=== PATIENT | male | born 1975 | race Caucasian/White ===

== ENCOUNTER 2017-07-29 19:14 | Emergency (ER) | payer MEDICAID ==
[~2017-07-29] VITALS: Ht 175.3 cm; Wt 87.3 kg
[~2017-07-29 19:14] MED LIST: DIAZ5TAB PO; HYDR-569 PO; NAPR500T6 PO; NO HOME MEDS
[2017-07-29] MEDS ORDERED: acetaminophen 325mg tablet PO STA (20:24)
[2017-07-29] MEDS ORDERED: normal saline 1000ML IV soln IV ONE (20:25)
[2017-07-29] MEDS ORDERED: ketorolac trometh. 30mg/ml inj. IV ONE (20:40)
[2017-07-29 21:03] LABS: BASOPHILS % (AUTO) 0.1 % (0-1); EOSINOPHILS # (AUTO) 0.1 X10'3 (0-0.9); EOSINOPHILS % (AUTO) 0.6 % (0-6); HEMOGLOBIN 14.9 g/dl (14.0-17.9); LYMPHOCYTES # (AUTO) 1.2 X10'3 (1.1-4.8); LYMPHOCYTES % (AUTO) 14.6 % (21-51); MEAN CORPUSCULAR HEMOGLOBIN 31.2 PG (27.0-31.0); MEAN CORPUSCULAR HGB CONC 33.9 % (33.0-36.5); MEAN PLATELET VOLUME 7.4 FL (7.4-10.4); MONOCYTES # (AUTO) 1.1 X10'3 (0-0.9); MONOCYTES % (AUTO) 12.8 % (2-12); NEUTROPHILS # (AUTO) 5.9 X10'3 (1.8-7.7); NEUTROPHILS % (AUTO) 71.9 % (42-75); PLATELET COUNT 200 X10'3 (140-440); RED BLOOD COUNT 4.78 X10'6 (4.70-6.10); RED CELL DISTRIBUTION WIDTH 14.4 % (11.5-14.5); WHITE BLOOD COUNT 8.2 X10'3 (4.5-11.0)
[2017-07-29 21:10] LABS: CLARITY,URINE Clear (Clear); COLOR,URINE Yellow (Yellow); GLUCOSE, URINE Negative (Neg); KETONES,URINE Negative (Neg); LEUKOCYTE ESTERASE ,URINE Negative (Neg); NITRITES, URINE Negative (Neg); OCCULT BLOOD,URINE Negative (Neg); PH,URINE 7.5 (4.8-8.0); PROTEIN,URINE Negative (Neg)
[2017-07-29 21:14] LABS: UA COLLECTION TYPE CLN CATCH MIDSTREAM
[2017-07-29 21:17] LABS: ALANINE AMINOTRANSFERASE 52 U/L (12-78); ALBUMIN 3.8 G/DL (3.4-5.0); ALBUMIN/GLOBULIN RATIO 1.2 (1.1-1.5); ALKALINE PHOSPHATASE 88 IU/L (46-116); ANION GAP 8 (8-16); ASPARTATE AMINO TRANSFERASE 28 U/L (10-37); BILIRUBIN,TOTAL 0.2 MG/DL (0.1-1.0); BLOOD UREA NITROGEN 17 MG/DL (7-18); CALCIUM 8.9 MG/DL (8.5-10.1); CHLORIDE 104 MMOL/L (99-107); GLUCOSE 88 MG/DL (70-104); POTASSIUM 3.8 MMOL/L (3.5-5.1); SODIUM 141 MMOL/L (135-145); TOTAL CARBON DIOXIDE 29.3 MMOL/L (24-32); eGFR 83 ML/MIN
[2017-07-29] MEDS ORDERED: TAM75C PO (22:44)
[2017-07-29 23:05] VITALS: BP 120/68
== END 2017-07-29 23:11 | disposition home or self-care (01) ==
LOC: ER 19:14
DX: J09.X2 Influenza due to identified novel influenza A virus with other respiratory manifestations (principal); Z79.899 Other long term (current) drug therapy
CPT/HCPCS: 36415; 71045; 80053; 81003; 83605; 85025; 87040; 87502; 87503; 93005; 96361; 96374; 99285; J1885; J7030

== ENCOUNTER 2022-09-01 11:26 | Emergency (ER) | payer MEDICAID ==
[~2022-09-01] VITALS: Ht 160 cm; Wt 84.0 kg
[~2022-09-01 11:26] MED LIST changes: +HYDR-4383 PO; -HYDR-569 PO
[2022-09-01 11:37] VITALS: BP 145/87
[2022-09-01] MEDS ORDERED: IBUP-1986 PO (12:42)
[2022-09-01] MEDS ORDERED: CYCL-1 PO (12:42)
[2022-09-01] MEDS ORDERED: ketorolac trometh. 30mg/ml inj. IM ONE (13:00)
== END 2022-09-01 13:30 | disposition home or self-care (01) ==
LOC: ER 11:27
DX: M25.551 Pain in right hip (principal); G89.29 Other chronic pain; F12.90 Cannabis use, unspecified, uncomplicated; Z56.0 Unemployment, unspecified
CPT/HCPCS: 72170; 96372; 99284; J1885

== ENCOUNTER 2023-12-22 22:15 | Emergency (ER) | payer MEDICAID ==
[~2023-12-22] VITALS: Ht 175.3 cm; Wt 81.8 kg
[~2023-12-22 22:15] MED LIST changes: +CYCL-1 PO; +IBUP-1986 PO
[2023-12-23 01:31] LABS: BILIRUBIN,URINE NEGATIVE (Neg); CLARITY,URINE CLEAR (Clear); COLOR,URINE YELLOW (Yellow); GLUCOSE, URINE NEGATIVE (Neg); KETONES,URINE NEGATIVE (Neg); LEUKOCYTE ESTERASE ,URINE NEGATIVE (Neg); NITRITES, URINE NEGATIVE (Neg); OCCULT BLOOD,URINE NEGATIVE (Neg); PH,URINE 5.5 (4.8-8.0); PROTEIN,URINE NEGATIVE (Neg); UROBILINOGEN,URINE 0.2 E.U/dL (0.2-1.0)
[2023-12-23 01:34] LABS: BASOPHILS # (AUTO) 0.1 X10'3 (0-0.2); BASOPHILS % (AUTO) 0.7 % (0-1); EOSINOPHILS # (AUTO) 0.3 X10'3 (0-0.9); EOSINOPHILS % (AUTO) 2.8 % (0-6); HEMATOCRIT 38.7 % (42.0-52.0); HEMOGLOBIN 13.2 g/dl (14.0-17.9); LYMPHOCYTES # (AUTO) 2.3 X10'3 (1.1-4.8); LYMPHOCYTES % (AUTO) 25.5 % (21-51); MEAN CORPUSCULAR HEMOGLOBIN 30.7 PG (27.0-31.0); MEAN CORPUSCULAR VOLUME 90.2 FL (78-98); MONOCYTES # (AUTO) 1.1 X10'3 (0-0.9); NEUTROPHILS # (AUTO) 5.3 X10'3 (1.8-7.7); PLATELET COUNT 277 X10'3 (140-440); RED BLOOD COUNT 4.29 X10'6 (4.70-6.10); RED CELL DISTRIBUTION WIDTH 13.7 % (11.5-14.5)
[2023-12-23 01:37] LABS: UA COLLECTION TYPE FOLEY CATH
[2023-12-23 01:45] LABS: ALBUMIN 3.5 G/DL (3.4-5.0); ANION GAP 9 (8-16); BLOOD UREA NITROGEN 21 MG/DL (7-18); BUN/CREATININE RATIO 23.1 (10.0-20.0); CALCIUM 8.6 MG/DL (8.5-10.1); CHLORIDE 105 MMOL/L (99-107); CREATININE 0.91 MG/DL (0.60-1.10); GLUCOSE 86 MG/DL (70-104); MAGNESIUM 1.9 MG/DL (1.5-2.4); POTASSIUM 4.2 MMOL/L (3.5-5.1); SODIUM 140 MMOL/L (135-145); TOTAL CARBON DIOXIDE 26.1 MMOL/L (24-32); eCRCL 101 ML/MIN; eGFR 90 ML/MIN
[2023-12-23] MEDS: morphine 4 MG/ML inj SYRINge IV ONE ×2 (02:00→02:57)
[2023-12-23 04:17] VITALS: BP 118/73; PULSE 68; RESP 16; TEMP 98.3; O2SAT 98
== END 2023-12-23 04:22 | disposition short-term general hospital (02) ==
LOC: ER 22:15
DX: R33.9 Retention of urine, unspecified (principal); R20.0 Anesthesia of skin; R32 Unspecified urinary incontinence; R53.1 Weakness; F12.90 Cannabis use, unspecified, uncomplicated; Z79.899 Other long term (current) drug therapy; Z79.1 Long term (current) use of non-steroidal anti-inflammatories (NSAID)
CPT/HCPCS: 36415; 51702; 80048; 81003; 83735; 85025; 96374; 96376; 99285; J2270; C1758

== ENCOUNTER 2024-07-19 19:38 | Emergency (ER) | payer MEDICAID ==
[~2024-07-19 19:38] MED LIST changes: +NAPR-1480 PO; -NAPR500T6 PO
== END 2024-07-19 20:23 | disposition left against medical advice (07) ==
LOC: ER 19:39
DX: M54.9 Dorsalgia, unspecified (principal); Z53.21 Procedure and treatment not carried out due to patient leaving prior to being seen by health care provider

== ENCOUNTER 2024-07-20 12:42 | Emergency (ER) | payer MEDICAID ==
[~2024-07-20] VITALS: Ht 175.3 cm; Wt 71.8 kg
[2024-07-20 13:44] VITALS: BP 132/80; PULSE 73; RESP 18; TEMP 98.1; O2SAT 97
== END 2024-07-20 18:06 | disposition left against medical advice (07) ==
LOC: ER 12:42
DX: M54.50 Low back pain, unspecified (principal); Z53.21 Procedure and treatment not carried out due to patient leaving prior to being seen by health care provider

== ENCOUNTER 2025-04-01 19:24 | Emergency (ER) | payer MEDICAID ==
[2025-04-01 21:10] VITALS: BP 128/84; PULSE 95; O2SAT 99
--- NOTE | 2025-04-01 22:05 | RADIOLOGY REPORT ---
CLINICAL INDICATION: KNEE PAIN TECHNIQUE: KNEE CMPTDI KNEE, COMP 4 VW MIN, left Comparison: None FINDINGS/IMPRESSION: : Prior below knee amputation. Bones are demineralized. No fracture or malalignment. No obvious erosive changes.
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
[2025-04-01 22:35] VITALS: RESP 18
[2025-04-01] MEDS: ketorolac trometh 15mg/ml vial 15 MG/ML ML IM ONE (22:35)
== END 2025-04-01 22:40 | disposition home or self-care (01) ==
LOC: ER 19:24
DX: S89.92XA Unspecified injury of left lower leg, initial encounter (principal); F12.90 Cannabis use, unspecified, uncomplicated; W05.0XXA Fall from non-moving wheelchair, initial encounter; Y93.89 Activity, other specified; Y92.89 Other specified places as the place of occurrence of the external cause; Y99.8 Other external cause status
CPT/HCPCS: 73564; 96372; 99283; J1885